=== PATIENT | male | born 1950 | race Caucasian/White ===

== ENCOUNTER 2019-09-22 07:29 | Inpatient (IN) ==
[2019-09-22] MEDS ORDERED: KETOROLAC 30 MG/ML VIAL IV ONE (07:53)
[2019-09-22] MEDS ORDERED: 0.9 % SODIUM CHLORIDE 1,000 ML IV ONE (07:53)
[2019-09-22] MEDS ORDERED: ONDANSETRON 4 MG/2 ML VIAL IV ONE (07:53)
--- NOTE | 2019-09-22 07:57 | Emergency Department Note ---
Abdominal Pain HPI - General Chief Complaint: Abdominal Pain Stated Complaint: Right side abd pain Time Seen by Provider: 09/22/19 07:53 Source: patient Mode of arrival: ambulatory Limitations: no limitations - History of Present Illness HPI Narrative: 69-year-old male comes in for a 3-day history of worsening right upper quadrant pain. He has not noticed a connection with anything he is 8 but he did vomit a couple times. No fever or shortness of breath. However he does have pain when he takes take a deep breath. No trouble urinating. Normal bowel movement this morning. - Related Data Home Medications Medication Instructions Recorded Confirmed albuterol sulfate 90 mcg/actuation 2 puff INHALATION Q6H PRN 09/20/19 09/22/19 aerosol inhaler atorvastatin 20 mg tablet 20 mg PO QHS 09/20/19 09/22/19 fexofenadine 60 mg-pseudoephedrine 1 tab PO Q12H PRN 09/20/19 09/22/19 ER 120 mg tablet,ext.release,12 hr fluticasone fur. 100 mcg-umeclid 1 inh INHALATION QDAY 09/20/19 09/22/19 62.5 mcg-vilant 25 mcg inhalat.powder insulin glargine 100 unit/mL (3 14 unit SUB-Q QHS ml 09/20/19 09/22/19 mL) subcutaneous pen liraglutide 0.6 mg/0.1 mL (18 mg/3 1.2 mg SUB-Q Q24H 09/20/19 09/22/19 mL) subcutaneous pen injector metformin 500 mg tablet,extended 1,000 mg PO BID tab 09/20/19 09/22/19 release 24hr Allergies Allergy/AdvReac Type Severity Reaction Status Date / Time acetaminophen AdvReac Mild Vomiting Verified 09/22/19 07:29 [From Tylenol-Codeine #3] codeine AdvReac Mild Vomiting Verified 09/22/19 07:29 [From Tylenol-Codeine #3] Review of Systems All systems ED: reviewed and negative except as stated. Abdominal Pain PMH - Past Medical History Attestation: Yes: The following information was validated with the patient. [facility] Narrative: Family History (Last Updated 09/20/19 @ 10:57 by Marisela Stratton) Mother Heart disease, congenital Father Heart disease, congenital Medical History (Last Updated 09/20/19 @ 11:17 by Marisela Stratton) Fatigue (Chronic) Allergic rhinitis (Chronic) Dyspnea (Chronic) Nicotine dependence (Chronic) Restless leg syndrome (Chronic) Hyperlipidemia (Chronic) Mumps (Chronic) Measles (Chronic) Bronchitis (Chronic) Chicken pox (Chronic) Headache (Chronic) Overweight (Chronic) HTN (hypertension) (Chronic) Diabetes mellitus, type II (Chronic) Chest pain at rest (Chronic) Chronic obstructive pulmonary disease with (acute) exacerbation (Chronic) Past Surgical History (Last Updated 09/20/19 @ 11:22 by Marisela Stratton) No pertinent past surgical history (Chronic) Medical history: Reports: COPD, DM, hypertension Surgical history ED: Reports: appendectomy, tonsillectomy - Social History Smoking status: Former smoker Physical Exam Normocephalic atraumatic. Alert oriented. Conjunctive are clear sclerae white nonicteric. No nasal discharge or congestion. Oropharynx pink and moist. Heart is regular rate and rhythm no murmur appreciated. Lungs are clear to auscultation bilaterally without wheezes rales rhonchi or respiratory distress. Abdomen is soft nondistended but he does have tenderness in the right upper quadrant. Mcgowan sign positive. No peritoneal signs or guarding. No pedal edema Limitations: no limitations Course Vital Signs Temperature 97.3 F 09/22/19 07:30 Pulse Rate 107 H 09/22/19 07:30 Respiratory Rate 09/22/19 07:30 Blood Pressure 139/85 09/22/19 07:30 Pulse Oximetry (%) 95 09/22/19 07:30 Temperature 97.3 F 09/22/19 07:30 Pulse Rate 107 H 09/22/19 07:30 Respiratory Rate 09/22/19 07:30 Blood Pressure 139/85 09/22/19 07:30 Pulse Oximetry (%) 95 09/22/19 07:30 Disposition Pt seen by TUBE BENDER/PA only: No Summary: Suspect gallbladder disease versus liver problem versus other intra-abdominal pathology. Ordered ultrasound of the right upper quadrant along with laboratory for work-up. Treat with pain medicine Zofran IV fluid Patient will be checked out to Dr. Russ at shift change Disposition: Still a Patient Condition: Fair Referrals: Vannesa Tse MD [Primary Care Provider] -
[2019-09-22] MEDS: HYDROmorphone 0.5 MG/0.5 ML SYRINGE IV PRN ×5 (08:07→20:58)
[2019-09-22 08:46] LABS: Basophils # (Auto) 0.03 K/mcL (0.00-0.30); Basophils % (Auto) 0.3 % (0.0-2.0); Granulocytes % (Auto) 66.2 % (38.0-78.0); Hematocrit 49.4 % (40.1-51.0); Hemoglobin 16.6 g/dL (13.7-17.5); Lymphocytes % (Auto) 20.9 % (15.5-49.0); Mean Cell Volume 83.3 fL (80.0-100.0); Mean Corpuscular HGB Conc 33.6 g/dL (31.0-36.0); Mean Platelet Volume 9.7 fL (7.4-10.4); Monocytes # (Auto) 1.11 K/mcL (0.10-0.90); Monocytes % (Auto) 11.6 % (1.0-12.0); Platelet Count 242 K/mcL (140-440); RBC 5.93 M/mcL (4.63-6.08); Red Cell Distribution Width 13.8 % (11.5-14.5); WBC 9.6 K/mcL (4.50-11.00)
[2019-09-22 09:05] LABS: ALT/SGPT 74 U/l (0-40); AST/SGOT 30 U/l (0-37); Albumin 4.1 gm/dL (3.2-5.2); Albumin/Globulin Ratio 1.2 (1.0-2.3); Alkaline Phosphatase 90 U/L (39-117); Bilirubin,Total 0.7 mg/dL (0.0-1.0); Blood Urea Nitrogen 17 mg/dl (8-23); Calcium 9.4 mg/dl (8.6-10.4); Carbon Dioxide 22 mmol/L (22-30); Chloride 96 mmol/L (96-108); Globulin 3.4 gm/dL (2.2-3.7); Glomerular Filtration Rate 98; Glucose 373 mg/dL (70-105)
--- NOTE | 2019-09-22 09:22 | Ultrasound Report ---
History: Right upper quadrant pain FINDINGS: The liver is mildly enlarged. The parenchyma is echogenic and difficult to penetrate. This is probably due to moderate generalized fatty infiltration. Contiguous the gallbladder there is a relatively hypoechoic zone of tissue which measures 8 x 10 mm in size. Doppler shows it is hypovascular. This is probably an island of relatively normal liver surrounded by fatty infiltration. No other mass is seen within the liver. Doppler shows normal blood flow in the hepatic and portal veins. No ascites is present. Gallbladder contains a moderate amount of sludge but no stones. The wall is 1.5 mm in thickness and the patient was nontender while scanning over the gallbladder. The intrahepatic ducts are nondilated. The extrahepatic ducts are mildly dilated and range from 8 to 11 mm. No stone or mass are seen within the distal common bile duct. Visualized portions of the pancreas are normal and the pancreatic duct is nondilated. There is no ascites. IMPRESSION: Hepatomegaly with fatty infiltration Sludge in the gallbladder Mildly dilated extrahepatic bile duct. If the bilirubin level is elevated, this could be further evaluated by nuclear medicine hepatobiliary scan or ERCP. Interpreted and Authenticated by: Saeed Ford 09/22/19
--- NOTE | 2019-09-22 09:24 | Emergency Department Note ---
Abdominal Pain HPI - General Chief Complaint: Abdominal Pain Stated Complaint: Right side abd pain Time Seen by Provider: 09/22/19 07:53 Source: patient Mode of arrival: ambulatory Limitations: no limitations - History of Present Illness HPI Narrative: See history and physical dictated by Dr. Mitchell. I am assuming care of patient due to change in shift. - Related Data Home Medications Medication Instructions Recorded Confirmed albuterol sulfate 90 mcg/actuation 2 puff INHALATION Q6H PRN 09/20/19 09/22/19 aerosol inhaler atorvastatin 20 mg tablet 20 mg PO QHS 09/20/19 09/22/19 fexofenadine 60 mg-pseudoephedrine 1 tab PO Q12H PRN 09/20/19 09/22/19 ER 120 mg tablet,ext.release,12 hr fluticasone fur. 100 mcg-umeclid 1 inh INHALATION QDAY 09/20/19 09/22/19 62.5 mcg-vilant 25 mcg inhalat.powder insulin glargine 100 unit/mL (3 14 unit SUB-Q QHS ml 09/20/19 09/22/19 mL) subcutaneous pen liraglutide 0.6 mg/0.1 mL (18 mg/3 1.2 mg SUB-Q Q24H 09/20/19 09/22/19 mL) subcutaneous pen injector metformin 500 mg tablet,extended 1,000 mg PO BID tab 09/20/19 09/22/19 release 24hr Allergies Allergy/AdvReac Type Severity Reaction Status Date / Time acetaminophen AdvReac Mild Vomiting Verified 09/22/19 07:29 [From Tylenol-Codeine #3] codeine AdvReac Mild Vomiting Verified 09/22/19 07:29 [From Tylenol-Codeine #3] Review of Systems Review of Systems: Patient indicates that the pain got worse last night. It has been present most of the time for 4 days with some waxing and waning. He did not eat breakfast this morning. He reports a recent change in his diabetic regimen. He is on metformin 2000 mg, NovoLog or Humalog 5 units 3 times daily with meals, and 16 units of Lantus at at bedtime. Abdominal Pain PMH - Past Medical History Medical history: Reports: COPD, DM, hypertension, other ("Thin blood" but no hemophilia.). Denies: CAD (coronary artery disease), DVT, pulmonary embolus - Social History Smoking status: Former smoker Physical Exam Limitations: no limitations General appearance: alert, in no apparent distress, nontoxic Head: atraumatic, normocephalic Eye: Present: EOMI Respiratory: Present: other (Is on nasal cannula oxygen. Reportedly went a little low with pain medication. Saturations 92%.). Absent: respiratory distress Abdominal: Present: tenderness. Absent: organomegaly Abdominal tenderness: Present: RUQ, moderate Extremities: Absent: pedal edema, pretibial edema Neurological: Present: alert, oriented X3 Psychiatric: Present: serious, polite, pleasant. Absent: depressed, agitated, anxious, poor eye contact Course Vital Signs Temperature 97.3 F 09/22/19 07:30 Pulse Rate 107 H 09/22/19 07:30 Respiratory Rate 09/22/19 07:30 Blood Pressure 139/85 09/22/19 07:30 Pulse Oximetry (%) 95 09/22/19 07:30 Temperature 97.3 F 09/22/19 07:30 Pulse Rate 100 H 09/22/19 10:27 Respiratory Rate 20 09/22/19 07:30 Blood Pressure 128/69 09/22/19 10:27 Pulse Oximetry (%) 89 L 09/22/19 10:27 Abdominal Pain - MDM Narrative Medical decision making narrative: 9:11 AM - labs come back with unremarkable CBC, liver function tests, etc. UA pending. Because of ultrasound findings and right upper quadrant pain will consult general surgery. 9:26 AM - I spoke with Dr. Roldan Olivera, general surgeon. He recommended going ahead with the MRCP here and if there is a stone will need to be transferred for GI care. If no stone he can do cholecystectomy later today possibly. Patient informed and agreeable although a little bit disappointed or frustrated with the possibility of needing transfer. 11:20 AM - I spoke with radiologist, Dr. Saeed Ford, with report that there is at least mild fatty liver but gallbladder does not demonstrate sludge or stones and the extra hepatic biliary ducts show dilatation with a common bile duct at 11 mm narrowing to 7 but no stone or mass identified. There is some diverticulosis but no diverticulitis. 11:24 AM - I spoke with Dr. Roldan Olivera, surgeon, who is willing to finish working up this patient and/or treat and he will be admitted. I will do transition orders per his request. - Lab Data Result diagrams: 09/22/19 08:07 09/22/19 08:07 Lab Results 09/22/19 09/22/19 09/22/19 Range/Units 08:07 08:07 08:07 WBC 9.6 (4.50-11.00) K/mcL RBC 5.93 (4.63-6.08) M/mcL Hgb 16.6 (13.7-17.5) g/dL Hct 49.4 (40.1-51.0) % MCV 83.3 (80.0-100.0) fL MCH 28.0 (26.0-34.0) pg MCHC 33.6 (31.0-36.0) g/dL RDW 13.8 (11.5-14.5) % Plt Count 242 (140-440) K/mcL MPV 9.7 (7.4-10.4) fL Gran % 66.2 (38.0-78.0) % Lymph % (Auto) 20.9 (15.5-49.0) % [place] % (Auto) 11.6 (1.0-12.0) % Eos % (Auto) 1.0 (0.0-7.0) % Baso % (Auto) 0.3 (0.0-2.0) % Gran # 6.32 (1.80-8.00) K/mcL Lymph # (Auto) 2.00 (1.50-4.80) K/mcL [place] # (Auto) 1.11 H (0.10-0.90) K/mcL Eos # (Auto) 0.10 (0.00-0.70) K/mcL Baso # (Auto) 0.03 (0.00-0.30) K/mcL VBG Lactic Acid 1.3 (0.5-2.0) mmol/L Sodium 134 (133-145) mmol/L Potassium 4.3 (3.3-5.1) mmol/L Chloride 96 (96-108) mmol/L Carbon Dioxide 22 (22-30) mmol/L Anion Gap 16.0 (8-16) BUN 17 (8-23) mg/dl Creatinine 0.7 (0.7-1.2) mg/dl GFR Calculation 98 Glucose 373 H (70-105) mg/dL Calcium 9.4 (8.6-10.4) mg/dl Total Bilirubin 0.7 (0.0-1.0) mg/dL AST 30 (0-37) U/l ALT 74 H (0-40) U/l Alkaline Phosphatase 90 (39-117) U/L Total Protein 7.5 (5.9-8.4) gm/dL Albumin 4.1 (3.2-5.2) gm/dL Globulin 3.4 (2.2-3.7) gm/dL Albumin/Globulin Ratio 1.2 (1.0-2.3) Lipase 23 (7-60) U/L Disposition Pt seen by COMPLIANCE COUNSEL/PA only: No Clinical Impression: Abdominal pain, RUQ (right upper quadrant), Dilation of common bile duct, Fatty liver, Diverticulosis Diabetes mellitus type 2, uncontrolled Qualifiers: Glycemic state: with hyperglycemia Qualified Code(s): E11.65 - Type 2 diabetes mellitus with hyperglycemia Disposition: Xfer As Inpt ([facility]) Condition: Fair Referrals: Vannesa Tse MD [Primary Care Provider] -
[2019-09-22] MEDS ORDERED: INSULIN REGULAR, HUMAN 1 UNIT/0.01 ML UNIT SQ ONE (09:49)
--- NOTE | 2019-09-22 11:26 | Magnetic Resonance Report ---
History: Right upper quadrant pain and dilated bile ducts seen on ultrasound TECHNIQUE: Axial T2, axial and coronal single shot fast spin-echo and MRCP images were acquired with 3-D reconstructions of the bile ducts. FINDINGS: The liver is mildly enlarged. The right lobe is 22 cm in length. There is mild generalized fatty infiltration. Adjacent to the gallbladder there is a small band of relatively normal liver parenchyma surrounded by fatty infiltration. There is no evidence of a liver mass. The gallbladder appears normal with no stones or thickening of the wall. No evidence of gallbladder mass. Intrahepatic ducts are nondilated. Common hepatic duct measures up to 11 mm. Above the ampulla, bile duct a 7 mm. There is no evidence of a stone or mass in or adjacent to the distal common bile duct. The ampulla appears normal. The pancreas is normal and the pancreatic duct is less than 2 mm in diameter. Incidentally noted are couple small simple cysts in both kidneys. The spleen and adrenals are normal. No ascites is present. There are multiple noninflamed diverticula in the visualized portion of the colon. IMPRESSION: Mildly dilated extrahepatic bile ducts. This could be due to a stricture at the ampulla or anatomic variant. Mild hepatomegaly with fatty infiltration of the liver Dr. Russ was called with the results Interpreted and Authenticated by: Saeed Ford 09/22/19
[2019-09-22] MEDS ORDERED: ONDANSETRON 4 MG/2 ML VIAL IV PRN (11:29)
[2019-09-22] MEDS ORDERED: NALOXONE HCL 0.4 MG/ML VIAL IV PRN (11:29)
[2019-09-22] MEDS ORDERED: PANTOPRAZOLE 40 MG VIAL IV ONE (11:33)
[2019-09-22] MEDS: 0.9 % SODIUM CHLORIDE 1,000 ML IV SCH ×2 (12:37→23:41)
--- NOTE | 2019-09-22 15:34 | General Surg History&Physical ---
History of Present Illness Patient information: Note initiated : 09/22/19 at 3:29 pm Service Date, if different from initiated Date: [] Patient: Elier Walker a 69 y/o M admitted on 09/22/19 for Rt Sided Abd Pain. Chief Complaint: [] HPI: Mr. Walker is a 69 year old M with severe abdominal pain nausea and vomiting. The patient developed severe pain in his right upper quadrant about 3 days ago after meals. This lasted about 6 hours. He had emesis 2. He improved but had recurrent pain in the same area on yesterday after his evening meal. He had increasing soreness and that pain has persisted throughout the day. Ultrasound showed sludge without stones. MRCP was said to be normal. LFTs normal. He has not had pain on the left side of his abdomen. He is admitted and still has point right subcostal tenderness with guarding. Review of Systems All systems PM: reviewed and no additional remarkable complaints except as stated (negative except as noted in the HPI and below) - Constitutional weight gain - Gastrointestinal abdominal pain, bloating, dyspepsia, nausea, vomiting - Neurological restless legs Past History Past medical history: Diabetes mellitus Hypertension Chronic obstructive lung disease Past surgical history: Appendectomy Past family history: Congenital heart disease in both parents Past social history: Former smoker stopped 3 years ago Drinks an occasional beer Denies drug use Medications and Allergies Home Medications Medication Instructions Recorded Confirmed Type albuterol sulfate 90 mcg/actuation 2 puff INHALATION Q6H PRN 09/20/19 09/22/19 History aerosol inhaler atorvastatin 20 mg tablet 20 mg PO QHS 09/20/19 09/22/19 History fexofenadine 60 mg-pseudoephedrine 1 tab PO Q12H PRN 09/20/19 09/22/19 History ER 120 mg tablet,ext.release,12 hr fluticasone fur. 100 mcg-umeclid 1 inh INHALATION QDAY 09/20/19 09/22/19 History 62.5 mcg-vilant 25 mcg inhalat.powder insulin glargine 100 unit/mL (3 14 unit SUB-Q QHS ml 09/20/19 09/22/19 History mL) subcutaneous pen liraglutide 0.6 mg/0.1 mL (18 mg/3 1.2 mg SUB-Q Q24H 09/20/19 09/22/19 History mL) subcutaneous pen injector metformin 500 mg tablet,extended 1,000 mg PO BID tab 09/20/19 09/22/19 History release 24hr Allergies Allergy/AdvReac Type Severity Reaction Status Date / Time acetaminophen AdvReac Mild Vomiting Verified 09/22/19 07:29 [From Tylenol-Codeine #3] codeine AdvReac Mild Vomiting Verified 09/22/19 07:29 [From Tylenol-Codeine #3] Exam Temp Pulse Resp BP Pulse Ox 97.3 F 96 H 20 120/65 95 09/22/19 12:28 09/22/19 12:28 09/22/19 12:28 09/22/19 12:28 09/22/19 12:28 - General physical appearance well developed, well nourished, no distress, obese - Eyes PERRL, normal ocular movement - ENT normal pinna, normal nares, normal mucosa, no hearing loss, no congestion - Head Head exam IM: Present: atraumatic, normal inspection, normocephalic - Neck no masses, no bruits, trachea midline, no lymphadenopathy, no venous distension - Cardiovascular Cardiovascular exam IM: Present: normal rate and rhythm - Respiratory normal expansion, normal respiratory effort, clear to auscultation - Abdomen Abdomen: Present: soft, tender (tenderness with guarding and right subcostal area with fullness), bowel sounds Hernia: Present: none - Genitourinary Present: normal penis with no external lesions - Integumentary Present: no rash, no growths, no abnormal pigmentation - Neurologic Present: normal coordination, normal sensation - Musculoskeletal Present: normal gait, normal posture - Psychiatric Present: oriented to time, oriented to person, oriented to place, speech is normal, memory intact Assessment and Plan (1) Acute acalculous cholecystitis Patient is counseled for laparoscopic cholecystectomy which will be performed tomorrow. Status: Acute (2) Diabetes mellitus type 2, uncontrolled Will cover with every 6 hours Accu-Cheks and sliding scale coverage with Humalog Lantus will be withheld until he is on a diet Status: Acute Qualifiers: Glycemic state: with hyperglycemia Qualified Code(s): E11.65 - Type 2 diabetes mellitus with hyperglycemia (3) Chronic obstructive pulmonary disease with (acute) exacerbation Dual nebs as needed Status: Chronic (4) HTN (hypertension) And antihypertensive meds orally or IV as needed Status: Chronic
[2019-09-22] MEDS ORDERED: ALBUTEROL SULFATE 200 PUFF INHALER INH PRN (15:46)
[2019-09-22 16:24] LABS: INR 0.9 (0.9-1.1); Prothrombin Time 12.2 sec (11.9-14.5)
[2019-09-22] MEDS: PIPERACILLIN SODIUM/TAZOBACTAM 3.375 GM in DEXTROSE 5% IN WATER 50 ML IV SCH ×3 (16:41→23:42)
[2019-09-22] MEDS: INSULIN LISPRO 1 UNIT/0.01 ML UNIT SQ SCH ×2 (17:46→23:51)
[2019-09-22] MEDS: PANTOPRAZOLE 40 MG VIAL IV SCH (17:47)
[2019-09-23] MEDS: HYDROmorphone 0.5 MG/0.5 ML SYRINGE IV PRN ×7 (02:56→23:37)
[2019-09-23] MEDS: PIPERACILLIN SODIUM/TAZOBACTAM 3.375 GM in DEXTROSE 5% IN WATER 50 ML IV SCH ×5 (05:27→23:44)
[2019-09-23] MEDS: INSULIN LISPRO 1 UNIT/0.01 ML UNIT SQ SCH ×5 (05:56→23:37)
[2019-09-23 06:21] LABS: Basophils # (Auto) 0.02 K/mcL (0.00-0.30); Basophils % (Auto) 0.3 % (0.0-2.0); Eosinophils # (Auto) 0.17 K/mcL (0.00-0.70); Eosinophils % (Auto) 2.5 % (0.0-7.0); Granulocytes % (Auto) 57.4 % (38.0-78.0); Hematocrit 44.3 % (40.1-51.0); Hemoglobin 14.2 g/dL (13.7-17.5); Lymphocytes # (Auto) 1.85 K/mcL (1.50-4.80); Lymphocytes % (Auto) 27.4 % (15.5-49.0); Mean Cell Volume 88.2 fL (80.0-100.0); Mean Corpuscular HGB Conc 32.1 g/dL (31.0-36.0); Mean Platelet Volume 9.3 fL (7.4-10.4); Monocytes # (Auto) 0.84 K/mcL (0.10-0.90); Monocytes % (Auto) 12.4 % (1.0-12.0); Platelet Count 199 K/mcL (140-440); RBC 5.02 M/mcL (4.63-6.08); Red Cell Distribution Width 14.1 % (11.5-14.5); WBC 6.8 K/mcL (4.50-11.00)
[2019-09-23 06:45] LABS: ALT/SGPT 66 U/l (0-40); AST/SGOT 34 U/l (0-37); Albumin 3.2 gm/dL (3.2-5.2); Alkaline Phosphatase 71 U/L (39-117); Bilirubin,Direct 0.2 mg/dL (0.0-0.3); Blood Urea Nitrogen 11 mg/dl (8-23); Calcium 7.9 mg/dl (8.6-10.4); Carbon Dioxide 22 mmol/L (22-30); Chloride 102 mmol/L (96-108); Globulin 3.1 gm/dL (2.2-3.7); Glomerular Filtration Rate 104; Glucose 234 mg/dL (70-105); Lactate Dehydrogenase 187 U/L (94-250); Phosphorous 2.8 mg/dL (2.7-4.5); Triglycerides 126 mg/dl (<150); Uric Acid 1.6 mg/dL (2.5-8.0)
[2019-09-23] MEDS: PANTOPRAZOLE 40 MG VIAL IV SCH ×2 (07:16→17:50)
[2019-09-23] MEDS ORDERED: PHENYLEPHRINE 10 MG/ML VIAL IV ONE (09:15)
[2019-09-23] MEDS ORDERED: DEXAMETHASONE 10 MG/ML VIAL IV ONE (09:15)
[2019-09-23] MEDS ORDERED: SUGAMMADEX SODIUM 200 MG/2 ML VIAL IV ONE (09:15)
[2019-09-23] MEDS ORDERED: KETAMINE 100 MG/ML ML IV ONE (09:15)
[2019-09-23] MEDS ORDERED: fentaNYL 250 MCG/5 ML VIAL IV ONE (09:15)
[2019-09-23] MEDS ORDERED: GLYCOPYRROLATE 0.2 MG/ML VIAL IV ONE (09:15)
[2019-09-23] MEDS ORDERED: LIDOCAINE HCL/PF 100 MG/5 ML SYRINGE IV ONE (09:15)
[2019-09-23] MEDS ORDERED: MIDAZOLAM 2 MG/2 ML VIAL IV ONE (09:15)
[2019-09-23] MEDS ORDERED: ONDANSETRON 4 MG/2 ML VIAL IV ONE (09:15)
[2019-09-23] MEDS ORDERED: ROCURONIUM 10 MG/ML ML IV ONE (09:15)
[2019-09-23] MEDS ORDERED: PROPOFOL 200 MG/20 ML VIAL IV ONE (09:15)
[2019-09-23] MEDS: 0.9 % SODIUM CHLORIDE 1,000 ML IV SCH ×3 (09:32→23:44)
[2019-09-23] MEDS ORDERED: PNEUMOCOCCAL 23-VAL P-SAC VAC 0.5 ML SYRINGE IM ONE ×2 (10:00→13:25)
[2019-09-23] MEDS ORDERED: IPRATROPIUM/ALBUTEROL 3 ML AMPUL.NEB NEB PRN (10:16)
[2019-09-23] MEDS ORDERED: MEPERIDINE 25 MG/ML SYRINGE IV PRN (10:16)
[2019-09-23] MEDS ORDERED: ONDANSETRON 4 MG/2 ML VIAL IV PRN ×2 (10:16→12:25)
[2019-09-23] MEDS ORDERED: fentaNYL 100 MCG/2 ML VIAL IV PRN (10:16)
[2019-09-23] MEDS ORDERED: KETOROLAC 15 MG/ML VIAL IV PRN (10:16)
--- NOTE | 2019-09-23 10:29 | Brief Operative Note ---
Date of procedure: 09/23/19 Pre-op diagnosis: acalculous cholecystitis Post-op diagnosis: other (acute acalculous cholecystitis) Procedure: laparoscopic cholecystectomy Grafts/Implants: No Anesthesia: GETA Findings: edematous dilated gallbladder Complications: none Surgeon: Elsie Olivera Estimated blood loss (cc): 20 Specimens Removed/Pathology: other (gallbladder) Condition: stable Disposition: PACU
[2019-09-23] MEDS ORDERED: LACTATED RINGERS 1,000 ML IV SCH (10:30)
[2019-09-23] MEDS ORDERED: NALOXONE HCL 0.4 MG/ML VIAL IV PRN (12:25)
[2019-09-23] MEDS ORDERED: ALBUTEROL SULFATE 200 PUFF INHALER INH PRN (12:25)
[2019-09-23] MEDS ORDERED: BENZOCAINE/MENTHOL 1 LOZENGE PO PRN (19:01)
[2019-09-23] MEDS ORDERED: BENZOCAINE/MENTHOL 1 LOZENGE PO ONE (19:09)
[2019-09-24] MEDS: HYDROmorphone 0.5 MG/0.5 ML SYRINGE IV PRN ×4 (03:39→13:11)
[2019-09-24] MEDS: PIPERACILLIN SODIUM/TAZOBACTAM 3.375 GM in DEXTROSE 5% IN WATER 50 ML IV SCH ×2 (05:44→11:41)
[2019-09-24] MEDS: INSULIN LISPRO 1 UNIT/0.01 ML UNIT SQ SCH ×2 (05:51→11:53)
[2019-09-24 06:16] LABS: Basophils # (Auto) 0.01 K/mcL (0.00-0.30); Basophils % (Auto) 0.1 % (0.0-2.0); Eosinophils # (Auto) 0.01 K/mcL (0.00-0.70); Eosinophils % (Auto) 0.1 % (0.0-7.0); Granulocytes % (Auto) 66.9 % (38.0-78.0); Hematocrit 42.6 % (40.1-51.0); Hemoglobin 13.9 g/dL (13.7-17.5); Lymphocytes # (Auto) 1.59 K/mcL (1.50-4.80); Lymphocytes % (Auto) 20.6 % (15.5-49.0); Mean Cell Volume 85.2 fL (80.0-100.0); Mean Corpuscular HGB Conc 32.6 g/dL (31.0-36.0); Mean Platelet Volume 9.4 fL (7.4-10.4); Monocytes # (Auto) 0.95 K/mcL (0.10-0.90); Monocytes % (Auto) 12.3 % (1.0-12.0); Platelet Count 220 K/mcL (140-440); Red Cell Distribution Width 13.7 % (11.5-14.5); WBC 7.7 K/mcL (4.50-11.00)
[2019-09-24 06:32] LABS: ALT/SGPT 142 U/l (0-40); AST/SGOT 81 U/l (0-37); Albumin 3.4 gm/dL (3.2-5.2); Albumin/Globulin Ratio 1.2 (1.0-2.3); Alkaline Phosphatase 75 U/L (39-117); Bilirubin,Direct < 0.2 mg/dL (0.0-0.3); Bilirubin,Total 0.8 mg/dL (0.0-1.0); Blood Urea Nitrogen 8 mg/dl (8-23); Calcium 8.2 mg/dl (8.6-10.4); Carbon Dioxide 23 mmol/L (22-30); Chloride 103 mmol/L (96-108); Globulin 2.8 gm/dL (2.2-3.7); Glomerular Filtration Rate 104; Glucose 222 mg/dL (70-105); Lactate Dehydrogenase 212 U/L (94-250); Phosphorous 2.7 mg/dL (2.7-4.5); Triglycerides 87 mg/dl (<150); Uric Acid 1.2 mg/dL (2.5-8.0)
[2019-09-24] MEDS: PANTOPRAZOLE 40 MG VIAL IV SCH (08:23)
[2019-09-24] MEDS: 0.9 % SODIUM CHLORIDE 1,000 ML IV SCH (10:55)
--- NOTE | 2019-09-24 15:47 | Discharge Summary ---
Providers - Providers Patient information: Note initiated : 09/24/19 at 3:44 pm Service Date, if different from initiated Date: [] Patient: Elier Walker 69 y/o M admitted on 09/22/19 for Rt Sided Abd Pain. Chief Complaint: [] Date of admission: 09/22/19 Discharge date: 09/24/19 Attending physician: Elsie Olivera Hospitalization Hospital Course: 69-year-old male admitted with acute and chronic cholecystitis. He underwent cholecystectomy on 23 Sep 2019. He was found to have acute inflammation and edema of the gallbladder but no palpable stones. He had no problems in the postoperative period. All of the preoperative symptoms resolved and he has been able to even a soft diet without symptoms. He is stable for discharge home. Discharge diagnosis: acute and chronic cholecystitis Secondary discharge diagnosis: Chronic obstructive lung disease Reason for admission: acute abdominal pain with nausea vomiting Procedures: Laparoscopic cholecystectomy Pertinent studies/significant findings: CT of abdomen and pelvis with contrast Upper abdominal ultrasound Complications: None Exam Temp Pulse Resp BP Pulse Ox 98.9 F 89 20 129/77 91 09/24/19 15:22 09/24/19 15:22 09/24/19 15:22 09/24/19 15:22 09/24/19 15:22 - General physical appearance well developed, well nourished, no distress - Eyes PERRL, normal ocular movement - ENT normal pinna, normal nares, normal mucosa, no hearing loss, no congestion - Head Head exam IM: Present: atraumatic, normocephalic - Neck no masses, no bruits, trachea midline, no lymphadenopathy, no venous distension - Cardiovascular Cardiovascular exam IM: Present: normal rate and rhythm - Respiratory normal expansion, normal respiratory effort, clear to percussion, clear to auscultation - Abdomen Abdomen: Present: soft, tender (mild tenderness around port sites), bowel sounds Hernia: Present: none - Genitourinary Present: normal penis with no external lesions - Integumentary Present: no rash, no growths, no abnormal pigmentation - Neurologic Present: normal coordination, normal sensation - Musculoskeletal Present: normal gait, normal posture - Psychiatric Present: oriented to time, oriented to person, oriented to place, speech is norm al, memory intact Discharge Plan - Patient/Caregiver Discharge Instructions Activity: increase activity as tolerated Diet: Low Fat Prescriptions: oxyCODONE/APAP [Percocet 10-325Mg] 1 tab PO Q4HP PRN #40 tab PRN Reason: Pain Transmission Status: Received by [id number] Promethazine [Phenergan] 25 mg PO Q4HP PRN #30 tab PRN Reason: Nausea Transmission Status: Sent to [id number] - Follow up Plan Follow up with: Vannesa Tse MD [Primary Care Provider] - Elsie Olivera MD [Physician] - ( call office for appointment in 2 weeks) Disposition: Home, Self-Care Prognosis: Good Rehab Potential: Good Overall status at discharge: patient is progressing back to baseline Pending Studies Resuscitation Status Full Code Diet Full Liquid Diet Start Sat September 22 1225 Albuterol Sulfate (Ventolin) 2 puff INH Q6HP PRN PRN Reason: Wheezing Last Admin: 09/23/19 23:37 Dose: 2 puff Documented by: JAYLON Diagnostic Test (Pha) (Accu-Chek) 1 each FS Q6 CHANDA; Protocol Last Admin: 09/24/19 11:39 Dose: 1 each Documented by: Admin: 09/24/19 05:44 Dose: 1 each Documented by: Admin: 09/23/19 23:36 Dose: 1 each Documented by: Admin: 09/23/19 17:30 Dose: 1 each Documented by: Admin: 09/23/19 12:41 Dose: 1 each Documented by: DANIEL Hydromorphone HCl (Dilaudid) 0.5 mg IV Q2HP PRN; Protocol PRN Reason: Per Pain Protocol Last Admin: 09/24/19 13:11 Dose: 0.5 mg Documented by: Admin: 09/24/19 08:23 Dose: 0.5 mg Documented by: Admin: 09/24/19 05:57 Dose: 0.5 mg Documented by: Admin: 09/24/19 03:39 Dose: 0.5 mg Documented by: Admin: 09/23/19 23:37 Dose: 0.5 mg Documented by: Admin: 09/23/19 20:54 Dose: 0.5 mg Documented by: Admin: 09/23/19 17:47 Dose: 0.5 mg Documented by: Admin: 09/23/19 14:22 Dose: 0.5 mg Documented by: DANIEL Sodium Chloride (Sodium Chloride 0.9%) 1,000 mls @ 100 mls/hr IV .Q10H CHANDA Last Admin: 09/24/19 10:55 Dose: Not Given Documented by: Admin: 09/23/19 23:44 Dose: 100 mls/hr Documented by: Infusion: 09/23/19 23:12 Dose: 100 mls/hr Documented by: Admin: 09/23/19 13:12 Dose: 100 mls/hr Documented by: DANIEL Piperacillin Sod/Tazobactam (Sod 3.375 gm/ Dextrose) 50 mls @ 100 mls/hr IV Q6H CHANDA; Protocol Last Infusion: 09/24/19 12:27 Dose: 0 mls/hr Documented by: Admin: 09/24/19 11:41 Dose: 100 mls/hr Documented by: Infusion: 09/24/19 06:15 Dose: 0 mls/hr Documented by: Admin: 09/24/19 05:44 Dose: 100 mls/hr Documented by: Infusion: 09/24/19 00:14 Dose: 100 mls/hr Documented by: Admin: 09/23/19 23:44 Dose: 100 mls/hr Documented by: Infusion: 09/23/19 18:31 Dose: 0 mls/hr Documented by: Admin: 09/23/19 18:00 Dose: 100 mls/hr Documented by: Infusion: 09/23/19 13:40 Dose: 100 mls/hr Documented by: Admin: 09/23/19 13:10 Dose: 100 mls/hr Documented by: DANIEL Insulin Human Lispro (Humalog) 0 unit SQ Q6 CHANDA; Protocol Last Admin: 09/24/19 11:53 Dose: 8 units Documented by: Admin: 09/24/19 05:51 Dose: 6 units Documented by: Admin: 09/23/19 23:37 Dose: 10 units Documented by: Admin: 09/23/19 17:54 Dose: 6 units Documented by: Admin: 09/23/19 13:10 Dose: 8 units Documented by: DANIEL Ondansetron HCl (Zofran) 4 mg IV Q4HP PRN PRN Reason: Nausea And Vomiting Last Admin: 09/24/19 12:30 Dose: 4 mg Documented by: REYNALDO Pantoprazole Sodium (Protonix) 40 mg IV BIDAC CHANDA Last Admin: 09/24/19 08:23 Dose: 40 mg Documented by: Admin: 09/23/19 17:50 Dose: 40 mg Documented by: DANIEL Shift Summary 09/24/19 04:03 Shift Summary by Lexis P[place] Pt is A&Ox4. Tachycardic at times. Other VSS on RA. Up ad mikki to BR. Pt received Dilaudid 0.5 mg x3 for pain. Tolerating full liquid diet. Flatus present. 5 lap sites to abdomen with amy & Tegaderm, CDI. Pt still has Accuchecks ordered Q6H (may need to change to ACHS since pt is full liquid diet now?). Midnight Accucheck was 338 and pt got 10 units SSI coverage. IV to LFA w/NS @ 100 ml/hr. Receiving Zosyn Q6H. Will update with verbal report. Initialized on 09/24/19 04:03 - END OF NOTE
--- NOTE | 2019-09-25 12:43 | Surgical Pathology Report ---
HISTOLOGY SPECIMEN MICROSCOPIC DIAGNOSIS GALLBLADDER, CHOLECYSTECTOMY: -- ACUTE AND CHRONIC CHOLECYSTITIS. (DMT:adj) PROCEDURAL IMPRESSION Acute acalculous cholecystitis. GROSS DESCRIPTION Received in formalin labeled gallbladder, is a carlton-pink cholecystectomy specimen measuring 9 x 3 x 2 cm. The serosal surface is smooth over the majority with a roughened hepatic region measuring 6 x 2 cm. There are clips present including one on the cystic duct. Upon opening, the mucosal surface brown-carlton with blood clot and wall thickness up to 0.3 cm. No stones are identified in the specimen or the container. Dredge Lever Operator sections submitted in one cassette. (RLF:adj) Electronically Signed by: Good Zurita M.D.
--- NOTE | 2019-10-02 10:48 | Operative Note ---
DATE OF OPERATION: 09/23/2019 PREOPERATIVE DIAGNOSIS: Acalculous cholecystitis. POSTOPERATIVE DIAGNOSIS: Acalculous cholecystitis. PROCEDURE: Laparoscopic cholecystectomy. SURGEON: Elsie Olivera M.D. FINDINGS: Edematous, dilated, inflamed gallbladder. DESCRIPTION OF PROCEDURE: Under general anesthesia, the patient's abdomen was prepped and draped in a sterile field. Infraumbilical incision was made and Veress needle was inserted. Abdomen was insufflated with 3 liters of CO2. A 12 mm port was placed. Laparoscope was placed. An edematous, dilated gallbladder was noted. It was decompressed with a Weck needle. It was then grasped and positioned. The cystic duct and cystic artery were dissected. The cystic duct was clipped with five clips close to the gallbladder and divided. Cystic artery was clipped with four clips on the wall of the gallbladder and divided. The gallbladder was from the infrahepatic bed using electrocautery. The gallbladder was placed in an Endopouch and retrieved. There was minimal bleeding and no bile leak. CO2 was allowed to escape from the abdomen, and the ports were removed. Fascia at the umbilicus was closed with 0 Vicryl. Skin incisions were closed with amy. Tegaderm dressings were placed. The patient was awakened, extubated, and transferred to the postanesthetic care unit in satisfactory condition. LCS:dora Job ID: [id number] Doc ID: [id number] Elsie Olivera M.D.
== END 2019-09-24 16:23 | disposition home or self-care (01) | DRG 419 ==
LOC: ED 07:29 → MEDSUR 12:22
PROVIDERS: ADMIT Family Medicine Adult Medicine; ATTEND Family Medicine Adult Medicine